=== PATIENT | female | born 1980 | race Caucasian/White ===

== ENCOUNTER → 2018-03-15 15:42 | Outpatient (CLI) | payer OTHER, SELFPAY ==
--- NOTE | 2018-03-15 | DI.US.S_ITS ---
PROCEDURE: US EXTREMELY NONVASC UPPER RT INDICATIONS: UPPER ARM ENLARGED NODE TECHNIQUE: Real-time scanning was performed of the right upper medial arm, with image documentation. COMPARISON: None. FINDINGS: No mass or fluid collection seen within the right upper medial arm. IMPRESSION: No sonographic abnormality. Dictated by: Patrick SWARTZ Interpreted: Valeri Velasquez MD on 03/15/2018 at 16:38 Approved by: Valeri Velasquez MD, PhD on 03/15/2018 at 17:34
== END ==
PROVIDERS: Visit Provider Physician Assistant
DX: R22.31 Localized swelling, mass and lump, right upper limb (principal)
CPT/HCPCS: 76882

== ENCOUNTER → 2021-07-09 13:35 | Outpatient (CLI) | payer OTHER, SELFPAY ==
--- NOTE | 2021-07-09 13:43 | DI.US.S_ITS ---
PROCEDURE: US EXTREMELY NONVASC UPPER RT INDICATIONS: RIGHT UPPER MEDIAL ARM LUMP TECHNIQUE: Real-time scanning was performed of the right upper arm, with image documentation. COMPARISON: [facility], [place], US EXTREMELY NONVASC UPPER RT, 03/15/2018, 16:09. FINDINGS: Focused ultrasound examination in medial aspect of right upper arm shows an oval solid lesion within subcutaneous soft tissue and measures 2 x 0.6 x 1.3 cm in size. No internal vascularity is seen. This structure shows similar echotexture as adjacent subcutaneous fat. IMPRESSION: Finding likely represent a small lipoma in medial right upper arm soft tissue. Dictated by: Fran Queen M.D. on 07/09/2021 at 15:22 Approved by: Fran Queen M.D. on 07/09/2021 at 15:23
--- NOTE | 2021-07-09 13:43 | DI.RAD.S_ITS ---
PROCEDURE: XR CHEST 2V INDICATIONS: chest wall pain. patient requests imaging TECHNIQUE: 2 views of the chest were acquired. COMPARISON: None. FINDINGS: Surgical changes and devices: None. Lungs and pleura: Lungs are clear. No pleural effusions or pneumothorax. Mediastinum: Mediastinal contours are normal. Heart size is normal. Bones and chest wall: No suspicious bony abnormalities. Soft tissues appear unremarkable. IMPRESSION: Normal two view chest x-ray Approved by: Mina Mccarty M.D. on 07/09/2021 at 16:20
--- NOTE | 2021-07-09 13:43 | DI.MG.S_ITS ---
BILATERAL DIGITAL SCREENING MAMMOGRAM 3D/2D WITH CAD: 07/09/2021 CLINICAL: Routine screening. Baseline exam. No prior exams were available for comparison. The tissue of both breasts is heterogeneously dense. This may lower the sensitivity of mammography. Current study was also evaluated with a Computer Aided Detection (CAD) system. No significant masses, calcifications, or other findings are seen in either breast. IMPRESSION: NEGATIVE There is no mammographic evidence of malignancy. A 1 year screening mammogram is recommended. This exam was interpreted at Station ID: [id number]. NOTE: For mammograms, a report in lay terms will be sent to the patient. Approximately 15% of breast malignancies will not be visualized mammographically. In the management of a palpable breast mass, a negative mammogram must not discourage biopsy of a clinically suspicious lesion. Electronically Signed By: Boris juarez/saran:07/09/2021 14:56:49 letter sent: Normal Exam ACR BI-RADS Category 1: Negative 3341F
== END ==
PROVIDERS: PCP Physician Assistant; Referring Provider Physician Assistant; Visit Provider Physician Assistant
DX: Z12.31 Encounter for screening mammogram for malignant neoplasm of breast (principal); R59.9 Enlarged lymph nodes, unspecified; R07.89 Other chest pain; M94.0 Chondrocostal junction syndrome [Tietze]; G89.29 Other chronic pain
CPT/HCPCS: 71046; 76882; 77063; 77067

== ENCOUNTER → 2022-07-17 13:09 | Outpatient (CLI) | payer OTHER, SELFPAY ==
[2022-07-17 20:08] LABS: Add Manual Diff / Slide Review NO; Basophils Absolute Auto 100 /uL (0-100); Basophils Percent Auto 0.9 % (0-2); Eosinophils Absolute Auto 100 /uL (0-450); Eosinophils Percent Auto 1.2 % (2-4); Hematocrit 38.5 % (36-46); Hemoglobin 13.2 g/dL (12.0-16.0); Lymphocytes Absolute Auto 1500 /uL (1100-4500); Lymphocytes Percent Auto 20.8 % (25-40); Mean Corpuscular HGB Conc 34.2 % (30-36); Mean Corpuscular Hemoglobin 29.9 PG (26-34); Mean Corpuscular Volume 87.5 fL (80-100); Monocytes Absolute Auto 400 /uL (0-900); Monocytes Percent Auto 4.9 % (3-14); Neutrophils Absolute Auto 5400 /uL (1500-7000); Neutrophils Percent Auto 72.2 % (50-75); Platelet Count 268 X10^3/uL (150-400); Red Cell Distribution Width 12.5 % (11.6-14.8); White Blood Cell Count 7.5 X10^3/uL (4.5-11.0)
[2022-07-17 20:15] LABS: Alanine Aminotransferase 16 IU/L (<35); Albumin Globulin Ratio 1.4 (1.0-2.8); Alkaline Phosphatase 65 U/L (38-126); Aspartate Aminotransferase 23 IU/L (14-36); Bilirubin Total 0.4 mg/dL (0.2-1.3); Blood Urea Nitrogen 9 mg/dL (7-17); Calcium 9.1 mg/dL (8.4-10.2); Carbon Dioxide 27 mmol/L (22-32); Chloride 102 mmol/L (98-107); Estimated Glomerular Filt Rate > 60 mL/min (>60); Globulin 2.9 g/dL (1.7-4.1); Glucose 92 mg/dL (70-100); HEMOLYSIS < 15 (0-50); Potassium 3.7 mmol/L (3.4-5.1); Sodium 136 mmol/L (137-145); Total Protein 6.9 g/dL (6.3-8.2)
[2022-07-17 20:28] LABS: Erythrocyte Sedimentation Rate 9 MM/HR (0-20)
[2022-07-17 20:40] LABS: TSH w/ Reflex to FT4 1.65 uIU/mL (0.47-4.68)
== END ==
PROVIDERS: PCP Physician Assistant; Visit Provider Physician Assistant
DX: G89.29 Other chronic pain (principal); R07.89 Other chest pain; M94.0 Chondrocostal junction syndrome [Tietze]
CPT/HCPCS: 80053; 84443; 85025; 85651

== ENCOUNTER → 2022-07-21 13:16 | Outpatient (CLI) | payer OTHER, SELFPAY ==
--- NOTE | 2022-07-21 13:18 | DI.MG.S_ITS ---
BILATERAL DIGITAL SCREENING MAMMOGRAM 3D/2D WITH CAD: 07/21/2022 CLINICAL: Routine screening. Comparison is made to exam dated: 07/09/2021 mammogram - [facility]. Both breasts are heterogeneously dense, which may obscure small masses (category c / 51-75% glandular tissue). Current study was also evaluated with a Computer Aided Detection (CAD) system. No significant masses, calcifications, or other findings are seen in either breast. There has been no significant interval change. IMPRESSION: NEGATIVE There is no mammographic evidence of malignancy. A 1 year screening mammogram is recommended. Based on the Tyrer Cuzick model (a risk assessment model) the patient's lifetime risk is 14.2% and her 10 year risk is 2.3%. According to the ACR, ACS, and NCCN guidelines, an annual breast MRI exam along with mammogram is recommended if the patient's lifetime risk is 20% or greater. This exam was interpreted at Station ID: [id number]. NOTE: For mammograms, a report in lay terms will be sent to the patient. Approximately 15% of breast malignancies will not be visualized mammographically. In the management of a palpable breast mass, a negative mammogram must not discourage biopsy of a clinically suspicious lesion. Electronically Signed By: Chloe talbot/saran:07/21/2022 13:55:01 letter sent: Normal Exam ACR BI-RADS Category 1: Negative 3341F
== END ==
PROVIDERS: PCP Physician Assistant; Referring Provider Physician Assistant; Visit Provider Physician Assistant
DX: Z12.31 Encounter for screening mammogram for malignant neoplasm of breast (principal)
CPT/HCPCS: 77063; 77067

== ENCOUNTER → 2022-10-20 12:10 | Outpatient (CLI) | payer OTHER, SELFPAY ==
--- NOTE | 2022-10-20 12:11 | DI.MRI.S_ITS ---
PROCEDURE: MR CHEST WO CON INDICATIONS: Chest wall/sternum pain with increased venous vascularity TECHNIQUE: Axial and oblique coronal T1 spin echo and T2 spin echo with fat saturation, sagittal T1 spin echo and STIR acquired through the affected chest wall. COMPARISON: None. FINDINGS: Image quality: Mild motion artifact. Bones: A marker is seen over the mid sternum underlying the marker, no acute edema is present. Overall unremarkable appearance of the costal cartilages and sternoclavicular joint. There is no definite fracture or dislocation. Soft tissues: No fluid collection or mass underlying the region of the marker. The lungs are not well evaluated on MRI. No definite abnormality in the partially visualized upper abdomen or mediastinum. The the overall the overall unremarkable appearance of the fibroglandular breast tissue. IMPRESSION: No acute abnormality identified. Mildly motion degraded MRI. No fracture, dislocation, fluid collection or mass is evident. The marker overlies the mid sternum. An alternative modality such as ultrasound could be used to further evaluate if needed. Dictated by: Tomas Gilman M.D. on 10/21/2022 at 9:30 Approved by: Tomas Gilman M.D. on 10/21/2022 at 9:35
== END ==
PROVIDERS: PCP Physician Assistant; Referring Provider Physician Assistant; Visit Provider Physician Assistant
DX: R07.89 Other chest pain (principal)
CPT/HCPCS: 71550

== ENCOUNTER → 2022-11-24 11:07 | Outpatient (CLI) | payer OTHER, SELFPAY ==
--- NOTE | 2022-11-24 11:08 | DI.US.S_ITS ---
LIMITED ULTRASOUND OF LEFT BREAST AND AXILLA: 11/24/2022 CLINICAL: Patient states chest wall into Left Breast pain for a year. Comparison is made to exam dated: 07/21/2022 mammogram - [facility]. Color flow ultrasound of the left breast axilla was performed on the areas of interest. Case scale images of the real-time examination were reviewed. IMPRESSION: NEGATIVE There is no sonographic evidence of malignancy. There is no sonographic abnormality seen in the left breast to correspond with the pain, however, clinical followup is recommended. Return to annual mammogram screening schedule is recommended. Future imaging is recommended as follows: 07/22/2023 screening mammogram. This exam was interpreted at Station ID: [id number]. Electronically Signed By: Savana Hilton M.D. lk/:11/24/2022 11:40:12 letter sent: Clinical Evaluation Ultrasound BI-RADS: 1 Negative
== END ==
PROVIDERS: PCP Physician Assistant; Referring Provider Physician Assistant; Visit Provider Physician Assistant
DX: N64.4 Mastodynia (principal); R07.89 Other chest pain; G89.29 Other chronic pain
CPT/HCPCS: 76642

== ENCOUNTER → 2023-07-23 12:35 | Outpatient (CLI) | payer OTHER, SELFPAY ==
--- NOTE | 2023-07-23 12:37 | DI.MG.S_ITS ---
BILATERAL DIGITAL SCREENING MAMMOGRAM 3D/2D WITH CAD: 07/23/2023 CLINICAL: Routine screening. Comparison is made to exams dated: 07/21/2022 mammogram and 07/09/2021 mammogram - [facility]. Both breasts are heterogeneously dense, which may obscure small masses (category c / 51-75% glandular tissue). Current study was also evaluated with a Computer Aided Detection (CAD) system. There is a round low density asymmetry with an obscured margin in the left breast at 5 o'clock anterior depth. This is more prominent. No other significant masses, calcifications, or other findings are seen in either breast. IMPRESSION: INCOMPLETE: NEEDS ADDITIONAL IMAGING EVALUATION The round low density asymmetry in the left breast is indeterminate. Additional views with possible ultrasound are recommended. Based on the Tyrer Cuzick model (a risk assessment model) the patient's lifetime risk is 14.1% and her 10 year risk is 2.4%. According to the ACR, ACS, and NCCN guidelines, an annual breast MRI exam along with mammogram is recommended if the patient's lifetime risk is 20% or greater. This exam was interpreted at Station ID: [id number]. NOTE: For mammograms, a report in lay terms will be sent to the patient. Approximately 15% of breast malignancies will not be visualized mammographically. In the management of a palpable breast mass, a negative mammogram must not discourage biopsy of a clinically suspicious lesion. Electronically Signed By: Chloe talbot/saran:07/23/2023 17:05:26 letter sent: Additional Imaging Needed ACR BI-RADS Category 0: Incomplete 3340F
== END ==
LOC: MAMMO 12:36
PROVIDERS: PCP Physician Assistant; Referring Provider Physician Assistant; Visit Provider Physician Assistant
DX: Z12.31 Encounter for screening mammogram for malignant neoplasm of breast (principal); R92.333 Mammographic heterogeneous density, bilateral breasts
CPT/HCPCS: 77063; 77067

== ENCOUNTER → 2023-08-13 12:02 | Outpatient (CLI) | payer OTHER, SELFPAY ==
--- NOTE | 2023-08-13 | DI.MG.S_ITS ---
UNILATERAL LEFT DIGITAL DIAGNOSTIC MAMMOGRAM 3D/2D WITH ADDITIONAL VIEWS: 08/13/2023 CLINICAL: Additional evaluation requested from prior study. Comparison is made to exams dated: 07/23/2023 mammogram, 07/21/2022 mammogram, and 07/09/2021 mammogram - [facility]. The left breast is heterogeneously dense, which may obscure small masses (category c / 51-75% glandular tissue). There is a focal asymmetry in the left breast at 5 o'clock anterior depth. This is not seen in additional views. No other significant masses or calcifications are seen in the breast. IMPRESSION: INCOMPLETE: NEEDS ADDITIONAL IMAGING EVALUATION The focal asymmetry in the left breast is indeterminate. An ultrasound is recommended. Based on the Tyrer Cuzick model (a risk assessment model) the patient's lifetime risk is 14.1% and her 10 year risk is 2.4%. According to the ACR, ACS, and NCCN guidelines, an annual breast MRI exam along with mammogram is recommended if the patient's lifetime risk is 20% or greater. This exam was interpreted at Station ID: [id number]. NOTE: For mammograms, a report in lay terms will be sent to the patient. Approximately 15% of breast malignancies will not be visualized mammographically. In the management of a palpable breast mass, a negative mammogram must not discourage biopsy of a clinically suspicious lesion. Electronically Signed By: Tomas Gilman M.D. /:08/13/2023 12:56:33 ACR BI-RADS Category 0: Incomplete 3340F
--- NOTE | 2023-08-13 | DI.US.S_ITS ---
LIMITED ULTRASOUND OF LEFT BREAST: 08/13/2023 CLINICAL: Patient returns today to evaluate a focal asymmetry in the left breast. Comparison is made to exams dated: 08/13/2023 mammogram and 07/23/2023 mammogram - [facility]. Real-time ultrasound of the left breast 4-6 o'clock region was performed. Case scale images of the real-time examination were reviewed. No significant abnormalities were seen sonographically in the left breast. IMPRESSION: NEGATIVE There is no sonographic evidence of malignancy. There is no abnormality seen in the left breast to correspond with the mammography finding. Return to annual mammogram screening schedule is recommended. This exam was interpreted at Station ID: [id number]. Electronically Signed By: Tomas Gilman M.D. lc/:08/13/2023 12:57:11 letter sent: Normal Exam Ultrasound BI-RADS: 1 Negative
== END ==
PROVIDERS: PCP Physician Assistant; Referring Provider Physician Assistant; Visit Provider Physician Assistant
DX: R92.8 Other abnormal and inconclusive findings on diagnostic imaging of breast (principal); G89.29 Other chronic pain; R07.89 Other chest pain; R92.332 Mammographic heterogeneous density, left breast
CPT/HCPCS: 76642; 77065; G0279

== ENCOUNTER → 2023-09-18 13:41 | Outpatient (CLI) | payer OTHER, SELFPAY ==
--- NOTE | 2023-09-18 13:43 | DI.CT.S_ITS ---
PROCEDURE: CT CHEST W CON INDICATIONS: persistent left chest pain TECHNIQUE: After the administration of intravenous contrast, 5 mm thick sections acquired from the pulmonary apices to the posterior costophrenic angles. 1 mm axial lung, 5 mm thick coronal and sagittal reformats and 7 mm axial MIP were acquired. For radiation dose reduction, the following was used: automated exposure control, adjustment of mA and/or kV according to patient size. COMPARISON: None. FINDINGS: Image quality: Diagnostic. Lower Neck: No enlarged lymph nodes. Thyroid: No thyroid nodules which require sonographic follow up, per consensus guidelines. Axillae: No enlarged lymph nodes. Chest Wall: Unremarkable. Bones: Unremarkable. Lungs and Pleura: No pneumothorax or pleural effusions. 2 mm solid nodule, right lower lobe (series 3, image 168). Heart: Heart size is normal. No pericardial effusion. Thoracic Vessels: The aorta and pulmonary arteries demonstrate normal size. Mediastinum and Olimpia: No enlarged lymph nodes. Esophagus: No wall thickening. No hiatal hernia. Upper Abdomen: Scattered subcentimeter hypoattenuating liver lesions, too small to characterize by CT but probably small cysts. IMPRESSION: No findings to explain the patient's left-sided chest pain. 3 mm solid nodule in the right lower lobe. Consider 12 month follow-up if at high risk for developing lung cancer, per Fleischner Society guidelines. Dictated by: Nba Gonzalez M.D. on 09/18/2023 at 15:29 Approved by: Nba Gonzalez M.D. on 09/18/2023 at 15:32
[2023-09-18 16:01] LABS: Alanine Aminotransferase 11 IU/L (<35); Albumin Globulin Ratio 1.7 (1.0-2.8); Alkaline Phosphatase 64 U/L (38-126); Aspartate Aminotransferase 19 IU/L (14-36); BUN Creatinine Ratio 19.4 (6-22); Bilirubin Total 0.5 mg/dL (0.2-1.3); Blood Urea Nitrogen 12 mg/dL (7-17); Calcium 9.4 mg/dL (8.4-10.2); Carbon Dioxide 29 mmol/L (22-32); Chloride 102 mmol/L (98-107); Estimated Glomerular Filt Rate > 60 mL/min (>60); Globulin 2.4 g/dL (1.7-4.1); Glucose 124 mg/dL (70-100); HEMOLYSIS < 15 (0-50); Potassium 3.9 mmol/L (3.4-5.1); Sodium 136 mmol/L (137-145); Total Protein 6.4 g/dL (6.3-8.2)
[2023-09-30 13:36] LABS: HLA B27 Negative (.)
== END ==
LOC: CT 13:42
PROVIDERS: Family Medicine; PCP Physician Assistant; Referring Provider Physician Assistant; Visit Provider Physician Assistant
DX: Z01.812 Encounter for preprocedural laboratory examination (principal); R07.89 Other chest pain; R91.1 Solitary pulmonary nodule; H20.9 Unspecified iridocyclitis; G89.29 Other chronic pain
CPT/HCPCS: 36415; 71260; 80053; 81374; Q9967

== ENCOUNTER → 2023-10-01 10:05 | Outpatient (CLI) | payer OTHER, SELFPAY ==
[2023-10-01 19:52] LABS: Appearance Urine UA CLEAR; Bilirubin Urine UA NEGATIVE (NEGATIVE); Color Urine UA YELLOW; Glucose Urine UA NEGATIVE (Negative); Ketones Urine UA NEGATIVE (NEGATIVE); Leukocyte Esterase Urine UA NEGATIVE (NEGATIVE); Nitrite Urine UA NEGATIVE (Negative); Occult Blood Urine UA TRACE-INTACT (Negative); Protein Urine UA NEGATIVE (Negative); Specific Gravity Urine UA <=1.005 (1.000-1.035); Urobilinogen Urine UA 0.2 E.U./dL (0.2)
[2023-10-01 20:12] LABS: pH Urine UA 6.5 (4.5-8.0)
[2023-10-01 20:15] LABS: Bacteria Urine Occasional (0-1); Culture Indicated Urine Cult Not Indicated; RBC Urine 0-1/HPF (0-5/HPF); Squamous Epithelial Cell Urine 0-1 /HPF (0-5/HPF); Urine Volume 10mL (spun); WBC Urine 0-1/HPF (0-5/HPF)
== END ==
PROVIDERS: PCP Physician Assistant; Visit Provider Physician Assistant Medical
DX: N23 Unspecified renal colic (principal)
CPT/HCPCS: 81001; 87086

== ENCOUNTER → 2023-10-12 13:23 | Outpatient (CLI) | payer OTHER, SELFPAY ==
[2023-10-12 19:40] LABS: Add Manual Diff / Slide Review NO; Basophils Absolute Auto 100 /uL (0-100); Basophils Percent Auto 0.8 % (0-2); Eosinophils Absolute Auto 100 /uL (0-450); Hematocrit 37.5 % (36-46); Lymphocytes Absolute Auto 1700 /uL (1100-4500); Lymphocytes Percent Auto 21.9 % (25-40); Mean Corpuscular HGB Conc 34.8 % (30-36); Mean Corpuscular Hemoglobin 30.5 PG (26-34); Mean Corpuscular Volume 87.7 fL (80-100); Monocytes Absolute Auto 400 /uL (0-900); Monocytes Percent Auto 4.7 % (3-14); Neutrophils Absolute Auto 5500 /uL (1500-7000); Neutrophils Percent Auto 71.6 % (50-75); Platelet Count 285 X10^3/uL (150-400); Red Blood Cell Count 4.28 X10^6/uL (4.0-5.2); Red Cell Distribution Width 12.7 % (11.6-14.8); White Blood Cell Count 7.7 X10^3/uL (4.5-11.0)
[2023-10-12 19:47] LABS: Rheumatoid Factor < 8.6 IU/mL (<12.0)
[2023-10-12 19:58] LABS: Bacteria Urine None Seen; RBC Urine None Seen (0-5/HPF); Squamous Epithelial Cell Urine 0-1 /HPF (0-5/HPF); Urine Volume 10mL (spun); WBC Urine None Seen (0-5/HPF)
[2023-10-12 19:59] LABS: Culture Indicated Urine Cult Not Indicated; Erythrocyte Sedimentation Rate 7 MM/HR (0-20)
== END ==
PROVIDERS: PCP Physician Assistant; Visit Provider Physician Assistant Medical
DX: R07.89 Other chest pain (principal); G89.29 Other chronic pain; M25.50 Pain in unspecified joint; N23 Unspecified renal colic; R31.9 Hematuria, unspecified
CPT/HCPCS: 81015; 85025; 85651; 86038; 86140; 86430

== ENCOUNTER → 2023-10-23 13:57 | Outpatient (CLI) | payer OTHER, SELFPAY ==
--- NOTE | 2023-10-23 13:58 | DI.US.S_ITS ---
PROCEDURE: US RENAL COMPLETE INDICATIONS: hematuria and kidney pain TECHNIQUE: Real-time scanning was performed of the kidneys and bladder, with image documentation. COMPARISON: None. FINDINGS: Kidneys: Kidneys are normal in size. Right kidney measures 11.1 cm long; left kidney measures 11.5 cm long. Right renal cortical thickness is 1.4 cm; left renal cortical thickness is 1.7 cm. Renal cortical echotexture is normal. No hydronephrosis or nephrolithiasis. No suspicious solid mass lesions. Bladder: Pre-void bladder volume is 284 mL. Post-void residual is 0 mL. Pre-void images demonstrate no intraluminal masses or stones. On pre-void images, bilateral ureteral jets are noted with color Doppler interrogation. (Of note, ureteral jets may not be detectable in up to 25% of cases due to insufficient differences in specific gravity between ureteral and bladder urine). Miscellaneous: No free pelvic fluid. IMPRESSION: Normal bilateral renal ultrasound with no visualized source of hematuria. Depending on the clinical status follow-up by contrast-enhanced CT scanning without and contrast may become necessary. Dictated by: Real Amezquita M.D. on 10/23/2023 at 16:23 Approved by: Real Amezquita M.D. on 10/23/2023 at 16:24
== END ==
LOC: US 13:58
PROVIDERS: PCP Physician Assistant; Referring Provider Physician Assistant Medical; Visit Provider Physician Assistant Medical
DX: R31.9 Hematuria, unspecified (principal); N23 Unspecified renal colic
CPT/HCPCS: 76770

== ENCOUNTER → 2024-01-25 13:40 | Outpatient (CLI) | payer OTHER, SELFPAY ==
--- NOTE | 2024-01-25 13:41 | DI.ECHO.S_ITS ---
[facility] : : [id number] : [place] : : [id number] : : Phone: [phone] Echocardiogram Report + + :Name: MICHELLE FERMIN Study Date: 01/25/2024 Height: 64 in : :Hospital ReadingLocation: Weight: 130 lb : : Gender: Female BSA: 1.6 m2 : :: 1980 Age: 43 yrs BP: 114/77 mmHg: :Reason For Study: PRECORDIAL PAIN : :Ordering Physician: MAYURI PETER Performed By: Luz Elena Garcia : :Referring: MAYURI PETER : + + Interpretation Summary Normal echo study. Procedure: A two-dimensional transthoracic echocardiogram with color flow and Doppler was performed. The study quality was technically adequate. There is no prior echocardiogram noted for this patient. The patient was in sinus rhythm with heart rates between 61-75 bpm during the exam. Left Ventricle: The left ventricle is normal in size and wall thickness. The ejection fraction is estimated to be 55-60%. There are no focal wall motion abnormalities. Diastolic parameters suggest probable normal left ventricular diastolic function and normal filling pressures. Right Ventricle: The right ventricle is normal in size and function. Atria: The left atrial size is normal. Right atrial size is normal. There is no Doppler evidence for an interatrial shunt. Mitral Valve: The mitral valve is normal in structure and function. There is trace mitral regurgitation. Aortic Valve: The aortic valve is trileaflet. The aortic valve opens well. There is no aortic valve stenosis. There is trace aortic regurgitation. Tricuspid Valve: The tricuspid valve is normal in structure and function. There is trace tricuspid regurgitation. The right ventricular systolic pressure is estimated to be at least 26 mmHg based on an estimated right atrial pressure of 8 mm Hg. Pulmonic Valve: The pulmonic valve leaflets are thin and pliable; valve motion is normal. There is trace pulmonic regurgitation. Great Vessels: The aortic root is normal size. The dimensions of the ascending aorta are normal. The IVC is dilated (diameter is greater than 2.1 cm) yet it collapses greater than 50% with a sniff. This suggests a right atrial pressure of 8 mm Hg. Pericardium/ Pleura There is no pericardial effusion. There is no pleural effusion. MMode/2D Measurements & Calculations LVIDd: 5.0 cm LVOT diam: 2.0 cm LVIDs: 3.1 cm Ao root diam: 3.3 cm FS: 38.0 % asc Aorta Diam: 2.8 cm IVSd: 0.55 cm Ao Arch Diam (Prox Trans): 2.8 cm LVPWd: 0.63 cm LV lantigua. diameter/BSA (cm/m^2): 3.0 LV sys. diameter/BSA (cm/m^2): 1.9 LA A2 area: 11.2 cm2 RA long axis: 4.0 cm LA A4 area: 12.6 cm2 RA area: 12.8 cm2 LA length (vol): 4.0 cm RA vol: 34.4 ml LA vol: 29.6 ml RA : 21.1 ml/m2 LA vol index: 18.2 ml/m2 IVC diam: 2.4 cm RVD1 (basal): 3.4 cm RVD2 (mid): 2.3 cm TAPSE: 1.8 cm Doppler Measurements & Calculations Ao V2 max: 97.6 cm/sec LVOT Max Johny: 92.1 cm/sec Ao V2 mean: 68.4 cm/sec LV V1 max P.4 mmHg Ao max P.8 mmHg LV V1 VTI: 19.6 cm Ao mean P.0 mmHg TERRI(I,D): 3.0 cm2 Ao V2 VTI: 20.1 cm TERRI(V,D): 2.9 cm2 sev ratio: 0.98 TERRI indexed to BSA (cm^2/m^2): 1.9 MV E max johny: 91.0 cm/sec TR max johny: 210.5 cm/sec MV A max johny: 47.9 cm/sec TR max P.7 mmHg MV E/A: 1.9 PA V2 max: 75.3 cm/sec Med Peak E' Johny: 16.9 cm/sec PA V2 mean: 55.4 cm/sec E/E' med: 5.4 PA mean P.3 mmHg Lat Peak E' Johny: 16.6 cm/sec PA pr(Accel): 22.5 mmHg E/E' lat: 5.5 E/e' average: 5.4 MV dec time: 0.21 sec SV(LVOT): 61.0 ml Electronically signed by: Alvaro Gomez on Reading Physician:01/25/2024 03:27 PM
--- NOTE | 2024-01-25 13:41 | DI.NM.S_ITS ---
PROCEDURE: NM EXERCISE TREADMILL NON NUC COMPARISON: None. INDICATIONS: Precordial pain FINDINGS: Patient exercised per the standard Lisandro protocol. Total exercise time was 7 minutes 23 seconds. Test was terminated secondary to fatigue. Maximal heart rate obtained is 161 bpm which is 92% of max predicted heart rate. Maximum blood pressure was 155/[place] [address]. KERRY +12%. 10.1 METS. Significant baseline artifact noted at peak stress affecting accuracy of interpretation. No arrhythmias noted. No chest pains voiced at peak stress but slight chest pain reported at the start of recovery quickly resolved. Normal heart rate and blood pressure response to exercise. IMPRESSION: 1. Nondiagnostic exercise treadmill stress test due to significant baseline artifact. 2. Below average exercise tolerance. Dictated by: Johnathon Queen M.D. on 01/25/2024 at 16:29 Approved by: Johnathon Queen M.D. on 01/25/2024 at 16:32
== END ==
LOC: ECHO 13:41
PROVIDERS: PCP Physician Assistant; Referring Provider Physician Assistant; Visit Provider Physician Assistant
DX: R07.2 Precordial pain (principal)
CPT/HCPCS: 93017; 93306

== ENCOUNTER → 2024-07-25 09:34 | Outpatient (CLI) | payer OTHER, SELFPAY ==
[2024-07-25 18:39] LABS: Add Manual Diff / Slide Review NO; Basophils Absolute Auto 0 /uL (0-100); Basophils Percent Auto 0.6 % (0-2); Eosinophils Absolute Auto 100 /uL (0-450); Eosinophils Percent Auto 1.1 % (2-4); Hematocrit 39.6 % (36-46); Hemoglobin 13.6 g/dL (12.0-16.0); Lymphocytes Absolute Auto 1500 /uL (1100-4500); Mean Corpuscular HGB Conc 34.3 % (30-36); Mean Corpuscular Hemoglobin 30.4 PG (26-34); Mean Corpuscular Volume 88.4 fL (80-100); Monocytes Absolute Auto 300 /uL (0-900); Monocytes Percent Auto 4.5 % (3-14); Neutrophils Absolute Auto 5600 /uL (1500-7000); Neutrophils Percent Auto 73.8 % (50-75); Platelet Count 299 X10^3/uL (150-400); Red Blood Cell Count 4.48 X10^6/uL (4.0-5.2); Red Cell Distribution Width 12.7 % (11.6-14.8); White Blood Cell Count 7.6 X10^3/uL (4.5-11.0)
[2024-07-25 18:53] LABS: Alanine Aminotransferase 16 IU/L (<35); Albumin 4.4 g/dL (3.5-5.0); Albumin Globulin Ratio 1.5 (1.0-2.8); Alkaline Phosphatase 54 U/L (38-126); Aspartate Aminotransferase 46 IU/L (14-36); BUN Creatinine Ratio 15.7 (6-22); Bilirubin Total 0.7 mg/dL (0.2-1.3); Blood Urea Nitrogen 11 mg/dL (7-17); C-Reactive Protein Quant 1.1 mg/dL (<1.0); Calcium 9.3 mg/dL (8.4-10.2); Carbon Dioxide 25 mmol/L (22-32); Chloride 102 mmol/L (98-107); Estimated Glomerular Filt Rate > 60 mL/min (>60); Glucose 81 mg/dL (70-100); HEMOLYSIS 22 (0-50); Potassium 4.2 mmol/L (3.4-5.1); Sodium 136 mmol/L (137-145); Total Protein 7.4 g/dL (6.3-8.2)
[2024-07-25 19:09] LABS: Vitamin D 25 Hydroxy (D3) 23.5 ng/mL (30.0-100.0)
[2024-07-25 19:21] LABS: Erythrocyte Sedimentation Rate 10 MM/HR (0-20)
[2024-07-25 19:25] LABS: Ferritin 23 ng/mL (6-137)
[2024-07-25 19:26] LABS: TSH w/ Reflex to FT4 2.27 uIU/mL (0.47-4.68)
[2024-07-25 19:39] LABS: Hemoglobin A1C% w Est Avg Glu 4.9 % (4.0-6.0)
== END ==
PROVIDERS: PCP Physician Assistant; Visit Provider Nurse Practitioner Adult Health
DX: M79.10 Myalgia, unspecified site (principal); N23 Unspecified renal colic
CPT/HCPCS: 80053; 82306; 82728; 83036; 84443; 85025; 85651; 86140

== ENCOUNTER → 2024-08-25 11:48 | Outpatient (CLI) | payer OTHER, SELFPAY ==
--- NOTE | 2024-08-25 11:50 | DI.MG.S_ITS ---
MM screening mammo BI: 08/25/2024. BI-RADS: 1 CLINICAL: 43-year old female for bilateral screening mammogram. Tyrer-Cuzick lifetime risk of 11.5%. No personal or first-degree family history of breast cancer. PRIOR EXAMS 08/13/2023, 07/23/2023, 11/24/2022, 07/21/2022, 07/09/2021. MAMMOGRAPHY TECHNIQUE: 2D and 3D (tomosynthesis) digital mammographic views obtained, with additional images as needed for full coverage. Current study was also evaluated with a Computer Aided Detection (CAD) system. DENSITY C. The breasts are heterogeneously dense, which may obscure small masses. MAMMOGRAPHY FINDINGS Bilateral: No suspicious mass, asymmetry, microcalcification, or other abnormality seen. IMPRESSION: * No evidence of malignancy. RECOMMENDATIONS Bilateral * Annual screening mammography. OVERALL ASSESSMENT CATEGORY BI-RADS-1: Negative. The [employer] recommends annual screening mammography beginning at age 40 for women with average risk of breast cancer. ELECTRONICALLY SIGNED: Akiko Cordova M.D. on 08/29/2024 at 12:42:40 AM PT Interpreting Station ID: [id number]
== END ==
LOC: MAMMO 11:48
PROVIDERS: PCP Physician Assistant; Referring Provider Physician Assistant; Visit Provider Physician Assistant
DX: Z12.31 Encounter for screening mammogram for malignant neoplasm of breast (principal)
CPT/HCPCS: 77063; 77067

== ENCOUNTER → 2025-03-02 13:26 | Outpatient (CLI) | payer OTHER, SELFPAY ==
[2025-03-02 19:09] LABS: Add Manual Diff / Slide Review NO; Hematocrit 38.5 % (36-46); Hemoglobin 13.3 g/dL (12.0-16.0); Lymphocytes Absolute Auto 1500 /uL (1100-4500); Mean Corpuscular HGB Conc 34.5 % (30-36); Mean Corpuscular Hemoglobin 29.7 PG (26-34); Mean Corpuscular Volume 86.1 fL (80-100); Platelet Count 327 X10^3/uL (150-400)
[2025-03-02 19:59] LABS: Vitamin D 25 Hydroxy (D3) 30.8 ng/mL (30.0-100.0)
[2025-03-02 20:47] LABS: Alanine Aminotransferase 13 IU/L (<35); Albumin 4.2 g/dL (3.5-5.0); Albumin Globulin Ratio 1.4 (1.0-2.8); Alkaline Phosphatase 65 U/L (38-126); Blood Urea Nitrogen 10 mg/dL (7-17); Calcium 9.1 mg/dL (8.4-10.2); Carbon Dioxide 27 mmol/L (22-32); Chloride 105 mmol/L (98-107); Estimated Glomerular Filt Rate > 60 mL/min (>60); Globulin 2.9 g/dL (1.7-4.1); Glucose 93 mg/dL (70-99); HEMOLYSIS < 15 (0-50); Potassium 4.0 mmol/L (3.4-5.1); Sodium 139 mmol/L (137-145); Total Protein 7.1 g/dL (6.3-8.2)
== END ==
PROVIDERS: PCP Physician Assistant; Visit Provider Physician Assistant
DX: R07.89 Other chest pain (principal); R74.8 Abnormal levels of other serum enzymes; M79.10 Myalgia, unspecified site; G89.29 Other chronic pain
CPT/HCPCS: 80053; 82306; 85025; 85651; 86038; 86140; 86430